=== PATIENT | female | born 1995 | race Hispanic/Latino ===

== ENCOUNTER 2023-09-30 19:00 | Inpatient (IN) | payer BC ==
[2023-09-30] MEDS ORDERED: Diphenoxylate HCl/Atropine Tablet PO PRN ×2 (19:54)
[2023-09-30] MEDS ORDERED: Misoprostol 200 MCG TAB PR PRN (19:54)
[2023-09-30] MEDS ORDERED: Lidocaine 1% (PF) 30 ML VIAL SC PRN (19:54)
[2023-09-30] MEDS ORDERED: Ondansetron PF 4 MG/2 ML Vial IVP PRN (19:54)
[2023-09-30] MEDS ORDERED: Oxytocin 30 units/NS 500 ML 500 ML IV SCH (19:54)
[2023-09-30] MEDS ORDERED: Methylergonovine 0.2 MG/ML VIAL IM PRN (19:54)
[2023-09-30] MEDS ORDERED: HYDROcodone/Acetaminophen 5/325 mg Tablet PO PRN ×2 (19:54)
[2023-09-30] MEDS ORDERED: Acetaminophen 500 MG TAB PO PRN (19:54)
[2023-09-30] MEDS ORDERED: Promethazine HCl 25 MG/ML VIAL IM PRN (19:54)
[2023-09-30] MEDS ORDERED: Carboprost 250 MCG/ML AMP IM PRN (19:54)
[2023-09-30] MEDS ORDERED: fentaNYL 50 mcg/mL 1 mL Vial SLOW IVP PRN (19:54)
[2023-09-30] MEDS ORDERED: Ibuprofen 800 MG TAB PO PRN (19:54)
[2023-09-30] MEDS ORDERED: Tranexamic Acid 1,000 MG/10 ML VIAL IVP PRN (19:54)
[2023-09-30] MEDS ORDERED: hydrALAZINE 20 MG/ML VIAL SLOW IVP PRN (19:54)
[2023-09-30 19:56] VITALS: BMI 35.4
[2023-09-30] MEDS ORDERED: Misoprostol 100 MCG TAB ONE (19:57)
[2023-09-30 20:42] LABS: Hematocrit 36.9 % (34.9-44.5); Hemoglobin 12.5 g/dL (12.0-15.5); Mean Corpuscular HGB CONC 33.9 g/dL (32.0-36.0); Mean Corpuscular Hemoglobin 30.5 pg (27.0-33.0); Platelet Count 189 10x3/uL (150-450); RBC Distribution Width 13.9 % (11.5-14.5); White Blood Cell (WBC) Count 9.2 10x3/uL (3.5-10.5)
[2023-09-30] MEDS ORDERED: Misoprostol 100 MCG TAB VAG SCH (21:00)
[2023-09-30 21:45] LABS: Syphilis Antibody Nonreactive (Nonreactive); Syphilis Antibody Index 0.02 S/CO (<1.00 Non-Reactive)
[2023-09-30 21:47] LABS: HBSAg Index 0.18 S/CO (0-0.99); Hep B Surf Ag - L&D Non-Reactive S/CO (NonReactive)
[2023-10-01] MEDS ORDERED: Sodium Bicarbonate 2.5 MEQ/5 ML VIAL ONE (06:43)
[2023-10-01] MEDS ORDERED: Promethazine HCl 25 MG/ML VIAL IM PRN (06:46)
[2023-10-01] MEDS ORDERED: Naloxone HCl 0.4 mg/ml Vial IVP PRN ×2 (06:46)
[2023-10-01] MEDS ORDERED: Acetaminophen 325 MG TAB PO PRN (06:46)
[2023-10-01] MEDS ORDERED: Lactated Ringer's 500 ML IV PRN (06:46)
[2023-10-01] MEDS ORDERED: ePHEDrine Sulfate 50 MG/10 ML VIAL SLOW IVP PRN (06:46)
[2023-10-01] MEDS ORDERED: diphenhydrAMINE 50 MG/ML VIAL IVP PRN (06:46)
[2023-10-01] MEDS ORDERED: Moisturizing Cream (Eucerin) 113 GM JAR TOP PRN (06:46)
[2023-10-01] MEDS ORDERED: fentaNYL/Ropivacaine Epidural 100 ML ONE (06:49)
[2023-10-01] MEDS ORDERED: Communication Order-Pharmacy FS SCH (07:00)
[2023-10-01] MEDS: fentaNYL 2 mcg/Ropivacaine 0.2% Epidural 100 ML CADD EPIDURAL SCH ×2 (07:08→18:52)
[2023-10-01 07:27] LABS: ALT (SGPT) 17 U/L (8-55); AST (SGOT) 26 U/L (5-34); Alkaline Phosphatase 243 U/L (40-110); Anion Gap 15 mmol/L (10-20); BUN (Urea Nitrogen) 5 mg/dL (7.0-18.7); Bilirubin, Total 0.7 mg/dL (0.2-1.2); Calc. Creatinine Clearance 194 mL/min (70-130); Calcium 8.2 mg/dL (7.8-10.44); Carbon Dioxide 17 mmol/L (22-29); Chloride 109 mmol/L (98-107); Estimated GFR 125; Globulin 2.4 g/dL (2.4-3.5); Glucose 83 mg/dL (70-105); Potassium 3.3 mmol/L (3.5-5.1); Protein, Total 5.4 g/dL (6.0-8.3); Sodium 138 mmol/L (136-145)
[2023-10-01 08:27] LABS: Creatinine, Urine 30.45 mg/dL (47-110)
[2023-10-01] MEDS ORDERED: Magnesium Sulfate 20 gm/500 ml 4 GM/100 ML BAG IVPB ONE (09:51)
[2023-10-01] MEDS ORDERED: Magnesium Sulfate 20 gm/500 ml 20 GM/500 ML BAG ONE (09:54)
[2023-10-01] MEDS ORDERED: Magnesium Sulfate 20 gm/500 ml 20 GM/500 ML BAG IVPB PRN (10:10)
[2023-10-01] MEDS: Ondansetron PF 4 MG/2 ML Vial IVP PRN ×3 (10:32→21:04)
[2023-10-01] MEDS ORDERED: Ondansetron PF 4 MG/2 ML Vial ONE (17:24)
[2023-10-01] MEDS: Lactated Ringer's 1,000 ML IV SCH (18:19)
[2023-10-01] MEDS ORDERED: fentaNYL 50 mcg/mL 1 mL Vial ONE ×2 (18:37→20:51)
[2023-10-01] MEDS ORDERED: fentaNYL 50 mcg/mL 1 mL Vial EPIDURAL SCH (19:00)
[2023-10-01] MEDS ORDERED: Lanolin Ointment 7 GM TUBE TOP PRN (23:30)
[2023-10-01] MEDS ORDERED: Bisacodyl 10 MG SUPP PR PRN (23:30)
[2023-10-01] MEDS ORDERED: traMADol HCl 50 MG TAB PO PRN (23:30)
[2023-10-01] MEDS ORDERED: Boostrix 0.5 ML (Tdap) VIAL (>/=7 yrs of age) IM ONE (23:30)
[2023-10-01] MEDS ORDERED: Milk Of Magnesia 30 ML UDCUP PO PRN (23:30)
[2023-10-01] MEDS ORDERED: hydrALAZINE 20 MG/ML VIAL SLOW IVP PRN (23:30)
[2023-10-02] MEDS ORDERED: Ibuprofen 800 MG TAB PO SCH ×3 (00:15→08:00)
[2023-10-02] MEDS: Ondansetron PF 4 MG/2 ML Vial IVP PRN (01:30)
[2023-10-02] MEDS ORDERED: Ferrous Sulfate 325 MG TAB PO SCH ×3 (08:00→13:45)
[2023-10-02] MEDS ORDERED: Docusate 100 MG CAP PO SCH ×2 (09:00→13:45)
[2023-10-02] MEDS ORDERED: Prenatal Vitamin 1 TAB PO SCH (09:00)
[2023-10-02] MEDS ORDERED: traMADol HCl 50 MG TAB PO PRN (13:33)
[2023-10-02] MEDS ORDERED: diphenhydrAMINE 25 MG CAP PO PRN (13:33)
[2023-10-02] MEDS ORDERED: Bisacodyl 10 MG SUPP PR PRN ×2 (13:33)
[2023-10-02] MEDS ORDERED: Boostrix 0.5 ML (Tdap) VIAL (>/=7 yrs of age) IM ONE (13:33)
[2023-10-02] MEDS ORDERED: hydrALAZINE 20 MG/ML VIAL SLOW IVP PRN (13:33)
[2023-10-02] MEDS ORDERED: Milk Of Magnesia 30 ML UDCUP PO PRN (13:33)
[2023-10-02] MEDS ORDERED: Benzocaine-Menthol 82.5 ML CAN TOP PRN ×2 (13:33)
[2023-10-02] MEDS: traMADol HCl 50 MG TAB PO PRN (13:54)
[2023-10-02] MEDS: Lactated Ringer's 1,000 ML IV SCH ×2 (19:06→19:07)
[2023-10-02] MEDS: Docusate 100 MG CAP PO SCH (20:23)
[2023-10-03] MEDS: traMADol HCl 50 MG TAB PO PRN ×2 (00:31→11:07)
[2023-10-03 07:40] VITALS: TEMP 98.4
[2023-10-03] MEDS ORDERED: Ferrous Sulfate 325 MG TAB PO SCH (08:00)
[2023-10-03] MEDS: Docusate 100 MG CAP PO SCH (08:14)
[2023-10-03] MEDS ORDERED: NIFEdipine XL 30 MG ER.TAB PO SCH (11:00)
[2023-10-03 11:08] VITALS: BP 147/93
== END 2023-10-03 12:40 | disposition home or self-care (01) | DRG 807 ==
LOC: CSHLD 19:11 → CSHPP 10-02 13:23
PROVIDERS: ADMIT Obstetrics & Gynecology; ATTEND Obstetrics & Gynecology
PROC: 10E0XZZ Delivery of Products of Conception, External Approach (ICD-10-PCS; principal; 2023-10-01)
PROC: 3E0P7VZ Introduction of Hormone into Female Reproductive, Via Natural or Artificial Opening (ICD-10-PCS; 2023-10-01)
DX: O70.1 Second degree perineal laceration during delivery (principal); Z37.0 Single live birth; Z3A.39 39 weeks gestation of pregnancy
CPT/HCPCS: 36415; 51702; 80053; 82570; 84156; 85027; 86780; 86850; 86900; 86901; 87340; J0360; J2405; J2550; J2590; J3010; J3475; J7120

== ENCOUNTER 2023-10-03 22:18 | Inpatient (IN) | payer BC ==
[2023-10-03] MEDS ORDERED: hydrALAZINE 20 MG/ML VIAL SLOW IVP PRN (23:48)
[2023-10-03 23:54] LABS: Bilirubin Neg (Negative); Blood, Urine 250 (Negative); Clarity Clear (Clear); Glucose, Urine (Dipstick) Normal (Negative); Ketone, Urine 5 mg/dL (Negative); Leukocyte 500 (Negative); Nitrite Negative (Negative); Protein, Urine (Dipstick) Negative (Neg-Trace); Specific Gravity, Urine 1.005 (1.005-1.030); Urobilinogen Normal mg/dL (Less than 2)
[2023-10-03 23:55] LABS: RBC/HPF 0-3 HPF (0-3)
[2023-10-03 23:56] LABS: Bacteria/HPF Rare-Few HPF (None Seen); CAUTI Indications for Culture Pregnancy; Squamous Epithelial 0-3 HPF (0-3)
[2023-10-03] MEDS ORDERED: Lactated Ringer's 1,000 ML IV SCH (23:59)
[2023-10-04 00:04] LABS: #Basophils 0.1 10x3/uL (0.0-0.2); #Eosinphils 0.1 10x3/uL (0.0-0.5); #Monocytes 0.9 10x3/uL (0.0-1.1); %Basophils 0.4 % (0.0-2.0); %Eosinophils 0.9 % (0.0-6.0); %Lymphocytes 12.5 % (18.0-47.0); %Monocytes 6.5 % (0.0-10.0); %Neutrophils 79.3 % (40.0-75.0); Hematocrit 38.3 % (34.9-44.5); Hemoglobin 12.9 g/dL (12.0-15.5); Mean Corpuscular HGB CONC 33.7 g/dL (32.0-36.0); Mean Corpuscular Hemoglobin 30.9 pg (27.0-33.0); Mean Corpuscular Volume 91.8 fl (81.6-98.3); Mean Platelet Volume 12.2 fl (7.4-10.4); Platelet Count 192 10x3/uL (150-450); RBC Distribution Width 14.3 % (11.5-14.5); Red Blood Cell (RBC) Count 4.17 10x6/uL (3.90-5.03); White Blood Cell (WBC) Count 13.8 10x3/uL (3.5-10.5)
[2023-10-04 00:10] LABS: Urine Culture Reflex Yes Yes
[2023-10-04] MEDS ORDERED: hydrALAZINE 20 MG/ML VIAL SLOW IVP PRN (00:25)
[2023-10-04] MEDS ORDERED: Lorazepam 2 MG/ML VIAL SLOW IVP PRN (00:25)
[2023-10-04] MEDS ORDERED: Labetalol HCl 100 MG/20 ML VIAL SLOW IVP PRN ×2 (00:25)
[2023-10-04] MEDS ORDERED: Calcium Gluc 4.6 MEQ/10 ML (100 MG/ML) SLOW IVP PRN (00:25)
[2023-10-04] MEDS ORDERED: Acetaminophen 325 MG TAB PO PRN (00:27)
[2023-10-04] MEDS ORDERED: Magnesium Sulfate 20 gm/500 ml 20 GM/500 ML BAG ONE (00:29)
[2023-10-04 00:33] LABS: ALT (SGPT) 20 U/L (8-55); AST (SGOT) 32 U/L (5-34); Albumin 3.3 g/dL (3.5-5.0); Alkaline Phosphatase 215 U/L (40-110); Anion Gap 15 mmol/L (10-20); BUN (Urea Nitrogen) 6 mg/dL (7.0-18.7); Bilirubin, Total 0.6 mg/dL (0.2-1.2); Calc. Creatinine Clearance 0 mL/min (70-130); Calcium 8.6 mg/dL (7.8-10.44); Carbon Dioxide 24 mmol/L (22-29); Chloride 104 mmol/L (98-107); Estimated GFR 123; Globulin 2.6 g/dL (2.4-3.5); Glucose 78 mg/dL (70-105); Potassium 3.7 mmol/L (3.5-5.1); Protein, Total 5.9 g/dL (6.0-8.3); Sodium 139 mmol/L (136-145)
[2023-10-04] MEDS ORDERED: Ondansetron PF 4 MG/2 ML Vial IVP PRN (00:39)
[2023-10-04] MEDS ORDERED: Ibuprofen 600 MG TAB PO PRN (00:42)
[2023-10-04] MEDS ORDERED: Magnesium Sulfate 20 gm/500 ml 20 GM/500 ML BAG IVPB SCH ×2 (00:45)
[2023-10-04] MEDS ORDERED: MAGNESIUM SULFATE IVPB SCH (01:00)
[2023-10-04 01:08] VITALS: BMI 35.4
[2023-10-04] MEDS ORDERED: Labetalol HCl 100 MG TAB PO SCH ×3 (08:00→20:00)
[2023-10-04 17:15] VITALS: BP 129/76
== END 2023-10-04 18:14 | disposition home or self-care (01) | DRG 776 ==
LOC: CSHLD/OP 22:18 → CSHLD 10-04 00:27
PROVIDERS: ADMIT Obstetrics & Gynecology; ATTEND Obstetrics & Gynecology
DX: O14.95 Unspecified pre-eclampsia, complicating the puerperium (principal)
CPT/HCPCS: 80053; 81001; 82570; 84156; 85025; 87086; J0360; J3475